=== PATIENT | female | born 1965 | race Caucasian/White ===

== ENCOUNTER → 2023-06-06 | Outpatient (CLI) | payer OTHER ==
[2023-06-06 13:11] LABS: BASOPHILS ABSOLUTE AUTO 0.05 K/mm3 (0.00-0.23); BASOPHILS PERCENT AUTO 1 % (0-2); EOSINOPHILS ABSOLUTE AUTO 0.05 K/mm3 (0.00-0.68); EOSINOPHILS PERCENT AUTO 1 % (0-6); Hematocrit 49.7 % (33.0-51.0); Hemoglobin 17.2 g/dL (11.5-16.0); IMMATURE GRAN ABSOLUTE AUTO 0.01 K/mm3 (0.00-0.10); IMMATURE GRAN PERCENT AUTO 0 % (0-1); LYMPHOCYTES ABSOLUTE AUTO 2.06 K/mm3 (0.84-5.20); LYMPHOCYTES PERCENT AUTO 38 % (21-46); MONOCYTES ABSOLUTE AUTO 0.38 K/mm3 (0.16-1.47); MONOCYTES PERCENT AUTO 7 % (4-13); Mean Corpuscular HGB 31.3 pg (26.0-34.0); Mean Corpuscular HGB Conc 34.6 g/dL (31.5-36.5); Mean Corpuscular Volume 90 fL (80-100); Mean Platelet Volume 9.3 fL (9.1-12.4); NEUTROPHILS ABSOLUTE AUTO 2.94 K/mm3 (1.96-9.15); NEUTROPHILS PERCENT AUTO 54 % (41-73); Platelet Count 328 K/mm3 (150-400); RDW Coefficient Variation 11.9 % (11.7-14.2); RDW Standard Deviation 39.3 fL (35.1-46.3); White Blood Cell Count 5.49 K/mm3 (4.00-11.30)
[2023-06-06 13:25] LABS: Albumin, Blood 4.7 g/dL (3.4-5.0); Albumin/Globulin Ratio 1.3 (0.8-1.8); Bilirubin, Total 1.2 mg/dL (0.1-1.0); Bun/Creatinine Ratio 12.3 (12.0-20.0); Calcium, Blood 9.9 mg/dL (8.5-10.1); Creatinine, Blood 0.81 mg/dL (0.40-1.00); Globulin, Blood 3.5 g/dL (2.2-4.0); Potassium, Blood 3.8 mmol/L (3.5-5.5); Total Protein, Blood 8.2 g/dL (6.4-8.2)
== END ==
LOC: LAB SHORT 13:04 → LAB 13:04
PROVIDERS: Physician Assistant Surgical
DX: R10.12 Left upper quadrant pain (principal)
CPT/HCPCS: 80053; 83690; 85025

== ENCOUNTER 2024-06-25 09:04 | Day surgery (SDC) | payer OTHER ==
[~2024-06-25] VITALS: Ht 170.2 cm; Wt 73.7 kg
[~2024-06-25 09:04] MED LIST: Lactated Ringer's 1,000 ML IV ONE
[2024-06-25] MEDS ORDERED: Lactated Ringer's 1,000 ML IV ONE (09:53)
--- NOTE | 2024-06-25 10:29 | NUR ---
06/25/24 1029 Suly Chahal TIME OUT DONE AT BEDSIDE AT [address] GARCIA PRIOR TO DIGITAL BLOCK BY DR GARCIA. 10ML INJECTION CONSISTING OF 9ML 1% LIDOCAINE WITH EPI [id number] AND 1ML 8.4% SODIUM BICARBONATE INJECTED BY DR GARCIA. PT TOLERATED PROCEDURE WELL.
[2024-06-25] MEDS ORDERED: propofoL 40 ML IV ONE (11:16)
[2024-06-25 12:01] VITALS: BP 115/79
--- NOTE | 2024-06-25 12:10 | NUR ---
06/25/24 1210 [place] PRESENT FOR DC INSTRUCTIONS. NO QUESTIONS OR CONCERS.
== END 2024-06-25 12:09 | disposition home or self-care (01) ==
LOC: ORSCSDS 09:04
PROVIDERS: Orthopaedic Surgery
PROC: 0LB80ZZ Excision of Left Hand Tendon, Open Approach (ICD-10-PCS; principal; 2024-06-25 12:00)
DX: R22.32 Localized swelling, mass and lump, left upper limb (principal); M67.442 Ganglion, left hand; K21.9 Gastro-esophageal reflux disease without esophagitis; Z79.899 Other long term (current) drug therapy
CPT/HCPCS: 88304; J2704; J7120

== ENCOUNTER → 2025-02-08 | Outpatient (CLI) | payer OTHER ==
[2025-02-22 09:06] LABS: HPV HIGH RISK BY TMA Not Detected; HPV SOURCE Cervical
== END | disposition home or self-care (01) ==
LOC: LAB SHORT 16:35 → LAB 16:35
PROVIDERS: Family Medicine
DX: Z01.419 Encounter for gynecological examination (general) (routine) without abnormal findings (principal)
CPT/HCPCS: 87624; G0123